=== PATIENT | female | born 2000 | race American Indian/Alaskan Native ===

== ENCOUNTER 2019-03-08 12:04 | Inpatient (IN) | payer MEDICAID ==
[2019-03-08] MEDS ORDERED: TERBUTALINE 1 MG/1 ML INJ SUB-Q PRN (12:31)
[2019-03-08] MEDS ORDERED: LIDOCAINE (2%) 20 MG/1 ML VIAL 20 ML MDV INFILTRATI ONE (12:31)
[2019-03-08] MEDS ORDERED: AMPICILLIN/NS 2 GM/100 ML 2 GM/100 ML BAG IV ONE (12:31)
[2019-03-08] MEDS ORDERED: TERBUTALINE 1 MG/1 ML INJ IVP PRN (12:31)
[2019-03-08] MEDS ORDERED: ONDANSETRON 4 MG/2 ML INJ IV PRN (12:31)
[2019-03-08] MEDS ORDERED: MINERAL OIL 30 ML ORAL LIQD PO PRN (12:31)
[2019-03-08] MEDS ORDERED: ePHEDrine SULFATE 50 MG/1 ML INJ IV PRN ×2 (12:31→18:08)
--- NOTE | 2019-03-08 12:42 | History and Physical Report ---
History of Present Illness Date of examination: 03/08/19 Chief complaint: sent from [facility] for IOL d/t Polyhydramnios History of present illness: EDC Calculations by LMP: 03/07/2019 Past History : 1 Term Births: 0 Premature Births: 0 Living Children: 0 Para: 0 Mult. Births: 0 Prev : 0 Prev. attempt? none Aborta: 0 Elect. Ab: 0 Spont. Ab: 0 Ectopics: 0 Risk Factors: Smoked Tobacco Use: Never smoker Smokeless Tobacco Use: Never Passive smoke exposure: no Drug use: no HIV high-risk behavior: no Alcohol use: no Exercise: no Seatbelt use: 100 % Dietary Counseling: pn yes Past Medical History: Negative Past Medical History Past Surgical History: negative Past Medical History Anesthesia Complications: negative Anemia: negative Autoimmune Disorder: negative Bleeding Disorder: negative Blood Transfusions: negative Breast Disease: negative Diabetes: negative Heart Disease: negative Hypertension: negative Hepatitis/Liver Disease: negative Kidney Disease/UTI: negative Neurologic/Epilepsy/Migraines: negative Phlebitis/Varicosities: negative Psychiatric: negative Pulmonary Disease/Asthma: negative Thyroid Disease: negative Hospitalizations: negative 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 Family Hx: no family hx of Ca Social Hx: denies ETOH/smoking Infection History Hx of STD: none HIV Risk Eval: no Varicella/Chicken Pox Status: Immunized Genetic History Congenital Heart Defect: Mom: no Dad: no Corie Disease: Mom: no Dad: no Thalassemia Mom: no Dad: no Neural Tube Defect Mom: no Dad: no Down's Syndrome Mom: no Dad: no Valerio-Sachs Mom: no Dad: no Sickle Cell Disease/Trait Mom: no Dad: no Hemophilia Mom: no Dad: no Muscular Dystrophy Mom: no Dad: no Cystic Fibrosis Mom: no Dad: no Jayy Chorea Mom: no Dad: no Mental Retardation Mom: no Dad: no Fragile X Mom: no Dad: no Other Genetic/Chromosomal Disorder Mom: no Dad: no Child w/other defect Mom: no Dad: no Enviromental Exposures Xray Exposure: no Medication, drug, or alcohol use since LMP: no Chemical/Other Exposure: no Exposure to Cat Liter: no Hx of Parvovirus (Fifth Disease): no Occupational Exposure to Children: none Current Allergies (reviewed today): No known allergies Past History Past Medical History: other (see HPI) Past Surgical History: other (see HPI) 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 (see 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) Family/Genetic History: other (see HPI) Social history: lives with family - Obstetrical History Expected Date of Delivery: 03/07/19 Actual Gestation: 40 Week(s) 1 Day(s) : 1 Para: 0 Hx # Term Pregnancies: 0 Number of Pregnancies: 0 Spontaneous Abortions: 0 Induced : 0 Number of Living Children: 0 Medications and Allergies Allergies Allergy/AdvReac Type Severity Reaction Status Date / Time No Known Allergies Allergy Verified 03/08/19 12:34 Review of Systems All systems: negative - Vital Signs Vital signs: Vital Signs Temp Pulse Resp BP 98 F 131 H 18 121/62 03/08/19 12:33 03/08/19 12:33 03/08/19 12:33 03/08/19 12:33 Temp Pulse Resp BP Pulse Ox 98 F 108 H 18 121/62 03/08/19 12:33 03/08/19 12:33 03/08/19 12:33 03/08/19 12:33 - Physical Exam Breasts: Positive: normal Cardiovascular: Regular rate Lungs: Positive: Clear to auscultation, Normal air movement Abdomen: Positive: normal appearance, soft Genitourinary (Female): Positive: normal external genitalia, normal perenium Results All other labs normal. Assessment and Plan 18y/o @ 40+1 seeing AMFM d/t maternal obesity and late PNC. upon exam today, USMAN was noted to be 23cms. Pt sent to [facility] by Dr. Hidalgo with [facility] for IOL. Admission orders in EMR. GBS +. Plan of care reviewed with patient, she verbalizes understanding of plan. All questions addressed. - Patient Problems (1) Positive GBS test Current Visit: Yes Status: Acute Plan to address problem: Ampicillin q4hr until delivery (2) Polyhydramnios Current Visit: Yes Status: Acute Qualifiers: Fetus number: single or unspecified fetus Trimester: third trimester Qualified Code(s): O40.3XX0 - Polyhydramnios, third trimester, not applicable or unspecified Plan to address problem: IOL with pitocin (3) 40 weeks gestation of Current Visit: Yes Status: Acute
[2019-03-08] MEDS ORDERED: OXYTOCIN 20 UNIT/1000ML DRIP 20 UNITS/1,000 ML BAG IV SCH (13:00)
[2019-03-08] MEDS ORDERED: OXYTOCIN DRIP 30 UNITS/500 ML BAG IV SCH (13:00)
[2019-03-08] MEDS: LACTATED RINGERS 1,000 ML IV SCH ×2 (13:40→20:33)
[2019-03-08 13:59] LABS: Hematocrit 30.7 % (30.3-42.9); Hemoglobin 9.3 gm/dl (10.1-14.3); Mean Corpuscular HGB Conc 30 % (30-34); Platelet Count 261 K/mm3 (140-440); Red Blood Count 4.64 M/mm3 (3.65-5.03)
[2019-03-08 14:02] LABS: Mean Corpuscular Volume 66 fl (79-97); Red Cell Distribution Width 20.7 % (13.2-15.2)
--- NOTE | 2019-03-08 16:07 | Event Note ---
Date: 03/08/19 pt denies feeling ctx, advised rn to continue titrating pitocin as ordered. T cat 1
--- NOTE | 2019-03-08 17:30 | Progress Note ---
Assessment and Plan SVE now 4cms, discussed options. AROM large amount of clear fluid noted. ISE And IUPC placed without difficulty. IV restarted by CNM with 20g in left inner forearm as previous one infiltration. rn to continue titrating pitocin for adequate labor. Epidural PRN. - Patient Problems (1) Positive GBS test Current Visit: Yes Status: Acute Plan to address problem: Ampicillin q4hr until delivery (2) Polyhydramnios Current Visit: Yes Status: Acute Qualifiers: Fetus number: single or unspecified fetus Trimester: third trimester Qualified Code(s): O40.3XX0 - Polyhydramnios, third trimester, not applicable or unspecified (3) 40 weeks gestation of Current Visit: Yes Status: Acute Subjective - Subjective Date of service: 03/08/19 Principal diagnosis: 40+1; IOL for polyhydramnios Interval history: EDC Calculations by LMP: 03/07/2019 Past History : 1 Term Births: 0 Premature Births: 0 Living Children: 0 Para: 0 Mult. Births: 0 Prev : 0 Prev. attempt? none Aborta: 0 Elect. Ab: 0 Spont. Ab: 0 Ectopics: 0 Risk Factors: Smoked Tobacco Use: Never smoker Smokeless Tobacco Use: Never Passive smoke exposure: no Drug use: no HIV high-risk behavior: no Alcohol use: no Exercise: no Seatbelt use: 100 % Dietary Counseling: pn yes Past Medical History: Negative Past Medical History Past Surgical History: negative Past Medical History Anesthesia Complications: negative Anemia: negative Autoimmune Disorder: negative Bleeding Disorder: negative Blood Transfusions: negative Breast Disease: negative Diabetes: negative Heart Disease: negative Hypertension: negative Hepatitis/Liver Disease: negative Kidney Disease/UTI: negative Neurologic/Epilepsy/Migraines: negative Phlebitis/Varicosities: negative Psychiatric: negative Pulmonary Disease/Asthma: negative Thyroid Disease: negative Hospitalizations: negative 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 Family Hx: no family hx of Ca Social Hx: denies ETOH/smoking Infection History Hx of STD: none HIV Risk Eval: no Varicella/Chicken Pox Status: Immunized Genetic History Congenital Heart Defect: Mom: no Dad: no Corie Disease: Mom: no Dad: no Thalassemia Mom: no Dad: no Neural Tube Defect Mom: no Dad: no Down's Syndrome Mom: no Dad: no Valerio-Sachs Mom: no Dad: no Sickle Cell Disease/Trait Mom: no Dad: no Hemophilia Mom: no Dad: no Muscular Dystrophy Mom: no Dad: no Cystic Fibrosis Mom: no Dad: no Cullen Chorea Mom: no Dad: no Mental Retardation Mom: no Dad: no Fragile X Mom: no Dad: no Other Genetic/Chromosomal Disorder Mom: no Dad: no Child w/other defect Mom: no Dad: no Enviromental Exposures Xray Exposure: no Medication, drug, or alcohol use since LMP: no Chemical/Other Exposure: no Exposure to Cat Liter: no Hx of Parvovirus (Fifth Disease): no Occupational Exposure to Children: none Current Allergies (reviewed today): No known allergies Patient reports: movement normal, contractions Objective - Vital Signs Vital Signs: Vital Signs - 12hr 03/08/19 03/08/19 03/08/19 12:33 14:12 14:15 Temperature 98 F Pulse Rate 108 H 117 H 121 H Respiratory 18 Rate Blood Pressure 121/62 Blood Pressure 121/62 [Left] O2 Sat by Pulse 97 97 Oximetry 03/08/19 03/08/19 03/08/19 14:20 14:25 14:30 Temperature Pulse Rate 95 H 93 H 108 H Respiratory Rate Blood Pressure Blood Pressure [Left] O2 Sat by Pulse 98 98 100 Oximetry 03/08/19 03/08/19 03/08/19 14:35 14:40 14:45 Temperature Pulse Rate 98 H 93 H 86 Respiratory Rate Blood Pressure Blood Pressure [Left] O2 Sat by Pulse 98 98 97 Oximetry 03/08/19 03/08/19 03/08/19 14:46 14:50 14:55 Temperature Pulse Rate 95 H 82 91 H Respiratory Rate Blood Pressure 113/59 Blood Pressure [Left] O2 Sat by Pulse 99 99 Oximetry 03/08/19 03/08/19 03/08/19 15:00 15:05 15:07 Temperature 97.7 F Pulse Rate 78 92 H 86 Respiratory 18 Rate Blood Pressure Blood Pressure 113/59 [Left] O2 Sat by Pulse 99 99 98 Oximetry 03/08/19 03/08/19 03/08/19 15:10 15:15 15:18 Temperature Pulse Rate 94 H 71 115 H Respiratory Rate Blood Pressure 125/77 Blood Pressure [Left] O2 Sat by Pulse 99 99 Oximetry 03/08/19 03/08/19 03/08/19 15:20 15:25 15:30 Temperature Pulse Rate 66 85 83 Respiratory Rate Blood Pressure Blood Pressure [Left] O2 Sat by Pulse 99 99 99 Oximetry 03/08/19 03/08/19 03/08/19 15:35 15:40 15:45 Temperature Pulse Rate 84 78 65 Respiratory Rate Blood Pressure Blood Pressure [Left] O2 Sat by Pulse 100 99 99 Oximetry 03/08/19 03/08/19 03/08/19 15:50 15:55 16:00 Temperature Pulse Rate 85 93 H 93 H Respiratory Rate Blood Pressure Blood Pressure [Left] O2 Sat by Pulse 100 98 99 Oximetry 03/08/19 03/08/19 03/08/19 16:05 16:08 16:10 Temperature Pulse Rate 86 77 86 Respiratory Rate Blood Pressure 140/62 Blood Pressure [Left] O2 Sat by Pulse 99 99 Oximetry 03/08/19 03/08/19 03/08/19 16:15 16:18 16:20 Temperature Pulse Rate 81 77 86 Respiratory Rate Blood Pressure 127/63 Blood Pressure [Left] O2 Sat by Pulse 100 100 Oximetry 03/08/19 03/08/19 03/08/19 16:25 16:30 16:35 Temperature Pulse Rate 100 H 73 82 Respiratory Rate Blood Pressure Blood Pressure [Left] O2 Sat by Pulse 100 100 100 Oximetry 03/08/19 03/08/19 03/08/19 16:40 16:45 16:50 Temperature Pulse Rate 85 91 H 85 Respiratory Rate Blood Pressure Blood Pressure [Left] O2 Sat by Pulse 100 100 99 Oximetry 03/08/19 03/08/19 03/08/19 16:55 17:00 17:05 Temperature Pulse Rate 97 H 86 117 H Respiratory Rate Blood Pressure 151/69 Blood Pressure [Left] O2 Sat by Pulse 100 100 100 Oximetry 03/08/19 03/08/19 03/08/19 17:10 17:15 17:20 Temperature Pulse Rate 96 H 97 H 95 H Respiratory Rate Blood Pressure Blood Pressure [Left] O2 Sat by Pulse 100 100 100 Oximetry - Exam Breasts: normal Cardiovascular: Regular rate Lungs: Normal air movement Abdomen: Present: normal appearance, soft Vulva: both: normal Uterus: Present: normal, fundal height above umbilicus FHR: category 1 Uterine Contraction Monitor Mode: Internal Cervical Dilatation: 4 (AROM - ISE and IUPC placed) Cervical Effacement Percentage: 80 station: -1 Uterine Contraction Frequency (min): 3-4 Uterine Contraction Duration: 50 Uterine Contraction Pattern: Regular Uterine Tone Measurement Phase: Contraction Uterine Contraction Intensity: Mild Extremities: normal Deep Tendon Reflex Grade: Normal +2 - Labs Labs: Abnormal Labs 03/08/19 13:35 Hgb 9.3 L MCV 66 L MCH 20 L RDW 20.7 H Laboratory Results - last 24 hr 03/08/19 03/08/19 03/08/19 13:35 13:35 13:35 WBC 8.6 RBC 4.64 Hgb 9.3 L Hct 30.7 MCV 66 L MCH 20 L MCHC 30 RDW 20.7 H Plt Count 261 Syphilis IgG Antibody Non-reactive Blood Type O POSITIVE Antibody Screen Negative
--- NOTE | 2019-03-08 17:40 | Event Note ---
Date: 03/08/19 [facility] Cat 1, ctx palpated mild with soft resting tone. Pitocin increased to 12mU via pump. VSS checked, b/p 141/80 mostly elevated d/t pain at this time. Pt declines epidural for pain management at this time.
[2019-03-08] MEDS: AMPICILLIN/NS 1 GM/50 ML 1 GM/50 ML BAG IV SCH ×2 (17:45→21:47)
--- NOTE | 2019-03-08 17:48 | Event Note ---
Date: 03/08/19 pt desires epidural, IVF open for bolus. second dose of IVPB Ampicillin not infused, started @ 1745 by this CNM.
[2019-03-08] MEDS ORDERED: NALOXONE 2 MG/2 ML INJ IV PRN (18:08)
--- NOTE | 2019-03-08 18:08 | Anesthesia Consultation ---
Anesthesia Consult and Med Hx Date of service: 03/08/19 - Airway Anesthetic Teeth Evaluation: Good ROM Head & Neck: Adequate Mental/Hyoid Distance: Adequate Mallampati Class: Class II Intubation Access Assessment: Good - Pulmonary Exam CTA: Yes - Cardiac Exam Cardiac Exam: RRR - Pre-Operative Health Status ASA Pre-Surgery Classification: ASA2, Emergency Proposed Anesthetic Plan: Epidural - Pulmonary Hx Asthma: No COPD: No Hx Pneumonia: No - Cardiovascular System Hx Hypertension: No - Central Nervous System Hx Seizures: No Hx Psychiatric Problems: No - Endocrine Hx Renal Disease: No Hx End Stage Renal Disease: No Hx Hypothyroidism: No Hx Hyperthyroidism: No - Hematic Hx Anemia: No Hx Sickle Cell Disease: No - Other Systems Hx Alcohol Use: Yes Hx Obesity: Yes
--- NOTE | 2019-03-08 18:10 | Event Note ---
Date: 03/08/19 Pitocin increased to 16mU by this CNM. FHT cat 1, ctx 2-3 50-70second in duration. Ampicillin completed. IVF continue open for epidural bolus.
[2019-03-08] MEDS ORDERED: fentaNYL 100 MCG/2 ML INJ ONE (18:30)
[2019-03-08] MEDS ORDERED: BUPIVACAINE/PF (0.25%) 2.5 MG/ML 10 ML VIAL INFILTRATI ONE (18:30)
[2019-03-08] MEDS ORDERED: fentaNYL-BUPIV 2 MCG/ML-0.125% 200 MCG/100 ML BAG EPIDURAL SCH (19:00)
--- NOTE | 2019-03-08 21:47 | Progress Note ---
Assessment and Plan patient comfortable with epidural, pitocin titrated by RN at this time. SVE now /-1, small amount of clear fluid noted from vagina. patient repositioned often, currently sitting up in high fowlers. EFW around 8lbs, pelvis feels adequate. continue with current management. Anticipate . - Patient Problems (1) Positive GBS test Current Visit: Yes Status: Acute Plan to address problem: Ampicillin q4hr until delivery (2) Polyhydramnios Current Visit: Yes Status: Acute Qualifiers: Fetus number: single or unspecified fetus Trimester: third trimester Qualified Code(s): O40.3XX0 - Polyhydramnios, third trimester, not applicable or unspecified (3) 40 weeks gestation of Current Visit: Yes Status: Acute Subjective - Subjective Date of service: 03/08/19 Principal diagnosis: 40+1; IOL for polyhydramnios Interval history: EDC Calculations by LMP: 03/07/2019 Past History : 1 Term Births: 0 Premature Births: 0 Living Children: 0 Para: 0 Mult. Births: 0 Prev : 0 Prev. attempt? none Aborta: 0 Elect. Ab: 0 Spont. Ab: 0 Ectopics: 0 Risk Factors: Smoked Tobacco Use: Never smoker Smokeless Tobacco Use: Never Passive smoke exposure: no Drug use: no HIV high-risk behavior: no Alcohol use: no Exercise: no Seatbelt use: 100 % Dietary Counseling: pn yes Past Medical History: Negative Past Medical History Past Surgical History: negative Past Medical History Anesthesia Complications: negative Anemia: negative Autoimmune Disorder: negative Bleeding Disorder: negative Blood Transfusions: negative Breast Disease: negative Diabetes: negative Heart Disease: negative Hypertension: negative Hepatitis/Liver Disease: negative Kidney Disease/UTI: negative Neurologic/Epilepsy/Migraines: negative Phlebitis/Varicosities: negative Psychiatric: negative Pulmonary Disease/Asthma: negative Thyroid Disease: negative Hospitalizations: negative 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 Family Hx: no family hx of Ca Social Hx: denies ETOH/smoking Infection History Hx of STD: none HIV Risk Eval: no Varicella/Chicken Pox Status: Immunized Genetic History Congenital Heart Defect: Mom: no Dad: no Corie Disease: Mom: no Dad: no Thalassemia Mom: no Dad: no Neural Tube Defect Mom: no Dad: no Down's Syndrome Mom: no Dad: no Valerio-Sachs Mom: no Dad: no Sickle Cell Disease/Trait Mom: no Dad: no Hemophilia Mom: no Dad: no Muscular Dystrophy Mom: no Dad: no Cystic Fibrosis Mom: no Dad: no Jayy Chorea Mom: no Dad: no Mental Retardation Mom: no Dad: no Fragile X Mom: no Dad: no Other Genetic/Chromosomal Disorder Mom: no Dad: no Child w/other defect Mom: no Dad: no Enviromental Exposures Xray Exposure: no Medication, drug, or alcohol use since LMP: no Chemical/Other Exposure: no Exposure to Cat Liter: no Hx of Parvovirus (Fifth Disease): no Occupational Exposure to Children: none Current Allergies (reviewed today): No known allergies Patient reports: no new complaints Objective - Vital Signs Vital Signs: Vital Signs - 12hr 03/08/19 03/08/19 03/08/19 12:33 14:12 14:15 Temperature 98 F Pulse Rate 108 H 117 H 121 H Respiratory 18 Rate Blood Pressure 121/62 Blood Pressure 121/62 [Left] O2 Sat by Pulse 97 97 Oximetry 03/08/19 03/08/19 03/08/19 14:20 14:25 14:30 Temperature Pulse Rate 95 H 93 H 108 H Respiratory Rate Blood Pressure Blood Pressure [Left] O2 Sat by Pulse 98 98 100 Oximetry 03/08/19 03/08/19 03/08/19 14:35 14:40 14:45 Temperature Pulse Rate 98 H 93 H 86 Respiratory Rate Blood Pressure Blood Pressure [Left] O2 Sat by Pulse 98 98 97 Oximetry 03/08/19 03/08/19 03/08/19 14:46 14:50 14:55 Temperature Pulse Rate 95 H 82 91 H Respiratory Rate Blood Pressure 113/59 Blood Pressure [Left] O2 Sat by Pulse 99 99 Oximetry 03/08/19 03/08/19 03/08/19 15:00 15:05 15:07 Temperature 97.7 F Pulse Rate 78 92 H 86 Respiratory 18 Rate Blood Pressure Blood Pressure 113/59 [Left] O2 Sat by Pulse 99 99 98 Oximetry 03/08/19 03/08/19 03/08/19 15:10 15:15 15:18 Temperature Pulse Rate 94 H 71 115 H Respiratory Rate Blood Pressure 125/77 Blood Pressure [Left] O2 Sat by Pulse 99 99 Oximetry 03/08/19 03/08/19 03/08/19 15:20 15:25 15:30 Temperature Pulse Rate 66 85 83 Respiratory Rate Blood Pressure Blood Pressure [Left] O2 Sat by Pulse 99 99 99 Oximetry 03/08/19 03/08/19 03/08/19 15:35 15:40 15:45 Temperature Pulse Rate 84 78 65 Respiratory Rate Blood Pressure Blood Pressure [Left] O2 Sat by Pulse 100 99 99 Oximetry 03/08/19 03/08/19 03/08/19 15:50 15:55 16:00 Temperature Pulse Rate 85 93 H 93 H Respiratory Rate Blood Pressure Blood Pressure [Left] O2 Sat by Pulse 100 98 99 Oximetry 03/08/19 03/08/19 03/08/19 16:05 16:08 16:10 Temperature Pulse Rate 86 77 86 Respiratory Rate Blood Pressure 140/62 Blood Pressure [Left] O2 Sat by Pulse 99 99 Oximetry 03/08/19 03/08/19 03/08/19 16:15 16:18 16:20 Temperature Pulse Rate 81 77 86 Respiratory Rate Blood Pressure 127/63 Blood Pressure [Left] O2 Sat by Pulse 100 100 Oximetry 03/08/19 03/08/19 03/08/19 16:25 16:30 16:35 Temperature Pulse Rate 100 H 73 82 Respiratory Rate Blood Pressure Blood Pressure [Left] O2 Sat by Pulse 100 100 100 Oximetry 03/08/19 03/08/19 03/08/19 16:40 16:45 16:50 Temperature Pulse Rate 85 91 H 85 Respiratory Rate Blood Pressure Blood Pressure [Left] O2 Sat by Pulse 100 100 99 Oximetry 03/08/19 03/08/19 03/08/19 16:55 17:00 17:05 Temperature Pulse Rate 97 H 86 117 H Respiratory Rate Blood Pressure 151/69 Blood Pressure [Left] O2 Sat by Pulse 100 100 100 Oximetry 03/08/19 03/08/19 03/08/19 17:10 17:15 17:20 Temperature Pulse Rate 96 H 97 H 95 H Respiratory Rate Blood Pressure Blood Pressure [Left] O2 Sat by Pulse 100 100 100 Oximetry 03/08/19 03/08/19 03/08/19 17:25 17:30 17:35 Temperature Pulse Rate 85 99 H 94 H Respiratory Rate Blood Pressure Blood Pressure [Left] O2 Sat by Pulse 97 99 99 Oximetry 03/08/19 03/08/19 03/08/19 17:37 17:40 17:45 Temperature Pulse Rate 101 H 99 H 100 H Respiratory Rate Blood Pressure 141/80 Blood Pressure [Left] O2 Sat by Pulse 99 99 Oximetry 03/08/19 03/08/19 03/08/19 17:46 17:50 17:55 Temperature Pulse Rate 99 H 97 H 111 H Respiratory Rate Blood Pressure 140/81 Blood Pressure [Left] O2 Sat by Pulse 100 100 Oximetry 03/08/19 03/08/19 03/08/19 18:00 18:05 18:09 Temperature Pulse Rate 98 H 94 H 107 H Respiratory Rate Blood Pressure Blood Pressure [Left] O2 Sat by Pulse 100 100 93 Oximetry 03/08/19 03/08/19 03/08/19 18:10 18:15 18:16 Temperature Pulse Rate 105 H 101 H 100 H Respiratory Rate Blood Pressure 119/59 Blood Pressure [Left] O2 Sat by Pulse 99 100 Oximetry 03/08/19 03/08/19 03/08/19 18:20 18:25 18:30 Temperature Pulse Rate 103 H 104 H 107 H Respiratory Rate Blood Pressure Blood Pressure [Left] O2 Sat by Pulse 100 99 100 Oximetry 03/08/19 03/08/19 03/08/19 18:33 18:34 18:35 Temperature Pulse Rate 117 H 111 H 110 H Respiratory Rate Blood Pressure 148/71 Blood Pressure [Left] O2 Sat by Pulse 80 L 100 Oximetry 03/08/19 03/08/19 03/08/19 18:37 18:40 18:43 Temperature Pulse Rate 109 H 105 H 97 H Respiratory Rate Blood Pressure 144/67 139/63 131/60 Blood Pressure [Left] O2 Sat by Pulse 100 Oximetry 03/08/19 03/08/19 03/08/19 18:45 18:46 18:49 Temperature Pulse Rate 108 H 112 H 109 H Respiratory Rate Blood Pressure 126/61 122/65 Blood Pressure [Left] O2 Sat by Pulse 100 Oximetry 03/08/19 03/08/19 03/08/19 18:50 18:52 18:55 Temperature Pulse Rate 108 H 109 H 111 H Respiratory Rate Blood Pressure 122/64 121/60 Blood Pressure [Left] O2 Sat by Pulse 100 100 Oximetry 03/08/19 03/08/19 03/08/19 18:58 19:00 19:01 Temperature Pulse Rate 100 H 109 H 103 H Respiratory Rate Blood Pressure 129/59 124/57 Blood Pressure [Left] O2 Sat by Pulse 100 Oximetry 03/08/19 03/08/19 03/08/19 19:04 19:05 19:07 Temperature Pulse Rate 93 H 113 H 96 H Respiratory Rate Blood Pressure 128/58 119/57 Blood Pressure [Left] O2 Sat by Pulse 100 Oximetry 03/08/19 03/08/19 03/08/19 19:10 19:13 19:15 Temperature 98.8 F Pulse Rate 112 H 113 H 103 H Respiratory 18 Rate Blood Pressure 117/57 126/60 Blood Pressure [Left] O2 Sat by Pulse 100 100 Oximetry 03/08/19 03/08/19 03/08/19 19:16 19:19 19:20 Temperature Pulse Rate 110 H 114 H 93 H Respiratory Rate Blood Pressure 116/55 112/54 Blood Pressure [Left] O2 Sat by Pulse 100 Oximetry 03/08/19 03/08/19 03/08/19 19:23 19:25 19:30 Temperature Pulse Rate 108 H 105 H 97 H Respiratory Rate Blood Pressure 108/55 Blood Pressure [Left] O2 Sat by Pulse 100 100 Oximetry 03/08/19 03/08/19 03/08/19 19:35 19:40 19:45 Temperature Pulse Rate 89 106 H 100 H Respiratory Rate Blood Pressure Blood Pressure [Left] O2 Sat by Pulse 100 100 100 Oximetry 03/08/19 03/08/19 03/08/19 19:50 19:55 20:00 Temperature Pulse Rate 83 99 H 118 H Respiratory Rate Blood Pressure Blood Pressure [Left] O2 Sat by Pulse 100 100 100 Oximetry 03/08/19 03/08/19 03/08/19 20:05 20:10 20:15 Temperature Pulse Rate 109 H 88 77 Respiratory Rate Blood Pressure Blood Pressure [Left] O2 Sat by Pulse 100 100 100 Oximetry 03/08/19 03/08/19 03/08/19 20:20 20:24 20:25 Temperature Pulse Rate 85 88 97 H Respiratory Rate Blood Pressure 134/77 Blood Pressure [Left] O2 Sat by Pulse 100 100 Oximetry 03/08/19 03/08/19 03/08/19 20:30 20:35 20:40 Temperature Pulse Rate 89 86 93 H Respiratory Rate Blood Pressure Blood Pressure [Left] O2 Sat by Pulse 100 100 100 Oximetry 03/08/19 03/08/19 03/08/19 20:45 20:50 20:55 Temperature Pulse Rate 102 H 78 81 Respiratory Rate Blood Pressure Blood Pressure [Left] O2 Sat by Pulse 100 100 100 Oximetry 03/08/19 03/08/19 03/08/19 21:00 21:05 21:11 Temperature Pulse Rate 90 82 85 Respiratory Rate Blood Pressure Blood Pressure [Left] O2 Sat by Pulse 100 100 100 Oximetry 03/08/19 03/08/19 03/08/19 21:16 21:21 21:26 Temperature Pulse Rate 105 H 89 101 H Respiratory Rate Blood Pressure Blood Pressure [Left] O2 Sat by Pulse 100 100 100 Oximetry 03/08/19 03/08/19 03/08/19 21:31 21:36 21:41 Temperature Pulse Rate 101 H 103 H 78 Respiratory Rate Blood Pressure Blood Pressure [Left] O2 Sat by Pulse 100 100 100 Oximetry - Exam Breasts: normal Cardiovascular: Regular rate Lungs: Clear to auscultation, Normal air movement Abdomen: Present: normal appearance, soft Vulva: both: normal Uterus: Present: normal, fundal height above umbilicus FHR: category 1 Uterine Contraction Monitor Mode: Internal Cervical Dilatation: 7 Cervical Effacement Percentage: 90 station: -1 Uterine Contraction Frequency (min): 1.5-3 Uterine Contraction Duration: 60 Uterine Contraction Pattern: Regular Uterine Tone Measurement Phase: Contraction Uterine Contraction Intensity: Moderate Extremities: normal - Labs Labs: Abnormal Labs 03/08/19 13:35 Hgb 9.3 L MCV 66 L MCH 20 L RDW 20.7 H Laboratory Results - last 24 hr 03/08/19 03/08/19 03/08/19 13:35 13:35 13:35 WBC 8.6 RBC 4.64 Hgb 9.3 L Hct 30.7 MCV 66 L MCH 20 L MCHC 30 RDW 20.7 H Plt Count 261 Syphilis IgG Antibody Non-reactive Blood Type O POSITIVE Antibody Screen Negative
[2019-03-09] MEDS ORDERED: miSOPROStol 200 MCG TAB ONE (00:57)
[2019-03-09] MEDS ORDERED: miSOPROStol 200 MCG TAB VG ONE (01:05)
--- NOTE | 2019-03-09 01:11 | Procedure Note ---
OB Delivery Note - Delivery Date of Delivery: 03/09/19 ( male) Pastry Wrapper: DAXA BARRIOS Estimated blood loss: 500cc - Vaginal Delivery presentation: vertex Delivery position: OA Intrapartum events: other(please specify) (Polyhydramios, terminal mec) Delivery induction: oxytocin Delivery augmentation: rupture of membranes, pitocin Delivery monitor: internal FHT, internal uterine Route of delivery: Delivery placenta: spontaneous Delivery cord: nuchal cord (easily reduced), 3 umbilical vessels Episiotomy: none Delivery laceration: 1st degree (Bilateral lower labial lacerations ) Delivery repair: vicryl Anesthesia: epidural Delivery comments: baby del over JASMIN over intact perineum. Infant placed skin to skin, 3 vessel cord clamped and cut. Cord blood collected. Placenta del intact and complete, large in size, sent to pathology d/t polyhydramnios. bilateral superficial lower labial lacerations repaired with 3-0 vicryl on SH. Uterine atony unresolved with fundal massage and IV Pitocin bolus. Cytotec 800mcg placed rectally, bleeding hemostatic. EBL 500. wt 8#13oz, apgars 8/9. Mother and infant remain LDR stable. - Infant A at 1 minute: 8 at 5 minutes: 9 Infant Gender: Male (8#13oz, "Harinder")
[2019-03-09] MEDS ORDERED: BENZOCAINE/MENTHOL 20/0.5% TOP SPRAY 56 GM TP PRN (05:32)
[2019-03-09] MEDS ORDERED: LANOLIN/ZINC/DIMETHICONE (LANSINOH) 7 GM TP PRN (05:32)
[2019-03-09] MEDS ORDERED: OXYTOCIN 20 UNIT/1000ML DRIP 20 UNITS/1,000 ML BAG IV SCH (05:32)
[2019-03-09] MEDS ORDERED: MAGNESIUM HYDROXIDE (MOM) ORAL LIQD UDC PO PRN (05:32)
[2019-03-09] MEDS ORDERED: diphenhydrAMINE 25 MG CAP PO PRN (05:32)
[2019-03-09] MEDS ORDERED: ACETAMINOPHEN 325 MG TAB PO PRN (05:32)
[2019-03-09] MEDS ORDERED: WITCH HAZEL/ GLYCERIN PAD TP PRN (05:32)
[2019-03-09] MEDS ORDERED: PROMETHAZINE 25 MG TAB PO PRN (05:32)
[2019-03-09 06:50] LABS: Alanine Aminotransferase 11 units/L (7-56); Uric Acid 6.8 mg/dL (3.5-7.6)
--- NOTE | 2019-03-09 08:09 | Event Note ---
Date: 03/09/19 (Pt OOB to bathroom) Pt w/o complaints "I'm just hungry", BP 140/90 in L&D, PP PIH labs ordered with urine, pt aware, will f/u with results
[2019-03-09] MEDS: IBUPROFEN 600 MG TAB PO SCH ×2 (08:39→23:10)
[2019-03-09] MEDS: FERROUS SULFATE 325 MG TAB PO SCH ×2 (08:41→23:09)
[2019-03-09] MEDS: PRENATAL VIT27-FE FUMARATE-FOLIC ACID VIT TAB PO SCH (08:41)
[2019-03-09 13:05] LABS: Hematocrit 25.7 % (30.3-42.9); Hemoglobin 7.7 gm/dl (10.1-14.3)
[2019-03-10] MEDS: IBUPROFEN 600 MG TAB PO SCH (05:56)
[2019-03-10] MEDS ORDERED: TETANUS,DIPH,PERTUSS(ACELL) VACCINE 0.5 ML SYRINGE IM ONE (06:00)
[2019-03-10 06:59] LABS: Bacteria,Urine 1+ /HPF (Negative); Bilirubin,Urine NEG (Negative); Blood,Urine LG (Negative); Color,Urine Yellow (Yellow); Mucus,Urine FEW /HPF; Urobilinogen,Urine < 2.0 mg/dL (<2.0)
[2019-03-10 07:01] LABS: RBC,Urine > 182.0 /HPF (0.0-6.0)
[2019-03-10] MEDS: PRENATAL VIT27-FE FUMARATE-FOLIC ACID VIT TAB PO SCH (09:46)
[2019-03-10] MEDS: FERROUS SULFATE 325 MG TAB PO SCH (09:46)
--- NOTE | 2019-03-10 10:06 | Discharge Summary ---
Providers - Providers Date of Admission: 03/08/19 12:31 Date of discharge: 03/10/19 Attending physician: GOKUL CLIFFORD Primary care physician: GOKUL CLIFFORD Hospitalization Reason for admission: induction of labor, IUP at term, other (polyhydramnios) Delivery: Laceration: 1st degree Other procedures: none complications: none Discharge diagnosis: IUP at term delivered [place] baby: male Hospital course: C patient's history and physical detailed. Patient was admitted underwent a normal spontaneous vaginal delivery. Her course was benign. She was afebrile throughout her stay. Her day 1 hematocrit was 25%. Patient is bottle and breast-feeding and undecided about control. Patient desires discharge today Condition at discharge: Good Disposition: DC-01 TO HOME OR SELFCARE Plan - Discharge Medications Prescriptions: Ferrous Sulfate [Feosol 325 MG tab] 325 mg PO BID #60 tablet Ibuprofen [Motrin 800 MG tab] 800 mg PO Q6H PRN #30 tablet PRN Reason: Pain - Provider Discharge Summary Activity: routine, no sex for 6 weeks Diet: routine Instructions: routine Additional instructions: [] Smoking cessation referral if applicable(refer to patient education folder for contact #) [] Refer to [facility] Booklet Call your doctor immediately for: * Fever > 100.5 * Heavy vaginal bleeding ( >1 pad per hour) * Severe persistent headache * Shortness of breath * Reddened, hot, painful area to leg or breast * Drainage or odor from incision. * - Follow up plan Follow up: GOKUL CLIFFORD MD [Primary Care Provider] - 7 Days
[2019-03-10 16:27] VITALS: BP 135/78
== END 2019-03-10 17:45 | disposition home or self-care (01) | DRG 775 ==
LOC: TRG 12:04 → LD 12:05 → TRG 12:31 → OB 03-09 03:20
PROVIDERS: ADMIT Obstetrics & Gynecology; ATTEND Obstetrics & Gynecology
PROC: 10907ZC Drainage of Amniotic Fluid, Therapeutic from Products of Conception, Via Natural or Artificial Opening (ICD-10-PCS; 2019-03-08)
PROC: 10H07YZ Insertion of Other Device into Products of Conception, Via Natural or Artificial Opening (ICD-10-PCS; 2019-03-08)
PROC: 10E0XZZ Delivery of Products of Conception, External Approach (ICD-10-PCS; principal; 2019-03-09)
PROC: 3E033VJ Introduction of Other Hormone into Peripheral Vein, Percutaneous Approach (ICD-10-PCS; 2019-03-09)
PROC: 3E0R3BZ Introduction of Anesthetic Agent into Spinal Canal, Percutaneous Approach (ICD-10-PCS; 2019-03-09)
PROC: 00HU33Z Insertion of Infusion Device into Spinal Canal, Percutaneous Approach (ICD-10-PCS; 2019-03-09)
PROC: 0HQ9XZZ Repair Perineum Skin, External Approach (ICD-10-PCS; 2019-03-09)
PROC: 3E0234Z Introduction of Serum, Toxoid and Vaccine into Muscle, Percutaneous Approach (ICD-10-PCS; 2019-03-10)
DX: O40.3XX0 Polyhydramnios, third trimester, not applicable or unspecified (principal); O99.824 Streptococcus B carrier state complicating childbirth; O69.81X0 Labor and delivery complicated by cord around neck, without compression, not applicable or unspecified; O99.214 Obesity complicating childbirth; O77.0 Labor and delivery complicated by meconium in amniotic fluid; O70.0 First degree perineal laceration during delivery; O99.314 Alcohol use complicating childbirth; Z3A.40 40 weeks gestation of pregnancy; Z37.0 Single live birth; Z23 Encounter for immunization
CPT/HCPCS: 36415; 81001; 82565; 83615; 84450; 84460; 84550; 85014; 85018; 85027; 86592; 86850; 86900; 86901; 87086; 88307; G0378; J0290; J2590; J3010; J7120